=== PATIENT | female | born 1950 | race Caucasian/White ===

== ENCOUNTER 2018-02-17 14:50 | Emergency (ER) | payer MEDICARE, MEDICAID ==
--- NOTE | 2018-02-17 14:55 | EDM.PDOC ---
ED HPI GENERAL MEDICAL PROBLEM - General Stated Complaint: PRIVET PROBLEMS Time Seen by Provider: 02/17/18 14:55 Source of Information: Reports: Patient, Other (assisted staff) History Limitations: Reports: Other (Pt developmentally delayed, staff with her) - History of Present Illness INITIAL COMMENTS - FREE TEXT/NARRATIVE: Pt to ER from [facility] jail with staff. Staff states the patient was recently on oral antibiotics and has developed a vaginal yeast infection. Staff states this happens frequently with oral antibiotics. Patient states it is very painful , irritating, and itchy. Onset: Gradual - Related Data Allergies Allergy/AdvReac Type Severity Reaction Status Date / Time No Known Allergies Allergy Verified 02/17/18 14:55 Home Meds: Home Meds Calcium Carbonate [Calcium] 600 mg PO 12/08/13 [History] Insulin Aspart [NovoLOG] 12/08/13 [History] Insulin Glarg,Human.Rec.Analog [Lantus Solostar] 12/08/13 [History] Simvastatin 12/08/13 [History] Tussin 12/08/13 [History] Vit B Comp&C/Vit E Acet/Zinc [Leticia Zinc] 1 each PO 12/08/13 [History] Vit D 12/08/13 [History] levoFLOXacin [Levaquin] 12/08/13 [History] ED ROS GENERAL - Review of Systems Review Of Systems: ROS reveals no pertinent complaints other than HPI. ED EXAM, GENERAL - Physical Exam Exam: See Below Exam Limited By: No Limitations General Appearance: Alert, WD/WN, No Apparent Distress Eye Exam: Bilateral Eye: EOMI, Normal Inspection Ears: Normal External Exam, Hearing Grossly Normal Nose: Normal Inspection Throat/Mouth: Normal Inspection, Normal Voice, No Airway Compromise Head: Atraumatic, Normocephalic Neck: Normal Inspection Respiratory/Chest: No Respiratory Distress, Lungs Clear, Normal Breath Sounds, No Accessory Muscle Use, Chest Non-Tender Cardiovascular: Normal Peripheral Pulses, Regular Rate, Rhythm, No Edema, No Gallop, No JVD, No Murmur, No Rub Peripheral Pulses: 2+: Radial (L), Radial (R) GI/Abdominal: Normal Bowel Sounds, Soft, Non-Tender (Female) Exam: Vaginal Discharge (white), Vaginal Lesions (red, excoriation on labia majora and extending outward.) Rectal (Female) Exam: Deferred Back Exam: Normal Inspection, Full Range of Motion Extremities: Normal Inspection, Normal Range of Motion, Non-Tender, No Pedal Edema, Normal Capillary Refill Neurological: Alert, Oriented, Slow to Respond Psychiatric: Normal Affect, Normal Mood Skin Exam: Warm, Dry, Erythema (external vagina extending out onto the inner thighs and back to rectal area) Lymphatic: No Adenopathy Course - Vital Signs Last Recorded V/S: Last Vital Signs Temp 98.5 F 02/17/18 14:57 Pulse 82 02/17/18 14:57 Resp 16 02/17/18 14:57 BP 140/95 H 02/17/18 14:57 Pulse Ox 97 02/17/18 14:57 Departure - Departure Time of Disposition: 15:11 Disposition: Home, Self-Care 01 Condition: Fair Clinical Impression: Vaginal yeast infection - Discharge Information *PRESCRIPTION DRUG MONITORING PROGRAM REVIEWED*: No *COPY OF PRESCRIPTION DRUG MONITORING REPORT IN PATIENT VIVIENNE: No Instructions: Vaginal Yeast Infection, Adult, Vaginitis, [id number]-ei-[id number] Forms: ED Department Discharge Additional Instructions: RX: Fluconizole Continue using recommended external cream Follow up with your primary care provider.
== END 2018-02-17 15:15 | disposition home or self-care (01) ==
LOC: DL.ED 14:50
DX: B37.3 Candidiasis of vulva and vagina (principal); Z79.4 Long term (current) use of insulin
CPT/HCPCS: 99283

== ENCOUNTER 2019-05-21 12:41 | Emergency (ER) | payer MEDICARE, MEDICAID ==
[2019-05-21 13:51] LABS: ANION GAP 17.8; CHLORIDE,CL 104 mmol/L (101-111); SODIUM,NA 139 mmol/L (135-145)
[2019-05-21] MEDS ORDERED: Sodium Chloride 0.9% 1,000 ML IV ONE (15:25)
[2019-05-21] MEDS ORDERED: Iopamidol 612 MG/ML 100 ML Bottle IVPUSH ONE (16:12)
[2019-05-21] MEDS ORDERED: Piperacillin/Tazobactam 3.375 GM in Sodium Chloride 0.9% 100 ML IV ONE (17:26)
--- NOTE | 2019-05-21 17:29 | EDM.PDOC ---
Scribed by Comfort Rivera 05/21/19 [id number] for Josue Hopson PA ED HPI GENERAL MEDICAL PROBLEM - General Chief Complaint: Gastrointestinal Problem Stated Complaint: DIABETIC COMPLAINT Time Seen by Provider: 05/21/19 13:10 Source of Information: Reports: Patient, EMS, EMS Notes Reviewed, RN, RN Notes Reviewed History Limitations: Reports: Other (nonverbal) - History of Present Illness INITIAL COMMENTS - FREE TEXT/NARRATIVE: Patient presents to ER by [facility]. She is a 68-year-old female patient who vomited overnight and this morning. She has been running fevers. Her blood sugar was in the 150s. The [facility] home person states that the patient is "nonverbal". The staff reports patient has had decreased activity level. Onset Date: 05/20/19 Duration: Getting Worse Location: Reports: Generalized Quality: Reports: Ache Severity: Moderate Improves with: Reports: None Worsens with: Reports: None Associated Symptoms: Reports: No Other Symptoms - Related Data Allergies Allergy/AdvReac Type Severity Reaction Status Date / Time No Known Allergies Allergy Verified 05/21/19 13:02 Home Meds: Home Meds Calcium Carbonate [Calcium] 600 mg PO BID 12/08/13 [History] Insulin Aspart [NovoLOG] 0 units SQ TID 12/08/13 [History] Insulin Glarg,Human.Rec.Analog [Lantus Solostar] 28 units SQ DAILY 12/08/13 [ History] Simvastatin 20 mg PO DAILY 12/08/13 [History] Vit B Comp&C/Vit E Acet/Zinc [Leticia Zinc] 1 each PO DAILY 12/08/13 [History] Vit D 1,000 units PO DAILY 12/08/13 [History] Benzonatate [Tessalon Perle] 1 tab PO Q6H 05/21/19 [History] Montelukast [Singulair] 10 mg PO DAILY 05/21/19 [History] Past Medical History HEENT History: Reports: None Cardiovascular History: Reports: None Respiratory History: Reports: Asthma Gastrointestinal History: Reports: None Genitourinary History: Reports: None [employer] History: Reports: None Musculoskeletal History: Reports: None Neurological History: Reports: None Psychiatric History: Reports: Developmental Delay, Learning Disability Endocrine/Metabolic History: Reports: Diabetes, Type II Hematologic History: Reports: None Immunologic History: Reports: None Oncologic (Cancer) History: Reports: None Dermatologic History: Reports: None - Infectious Disease History Infectious Disease History: Reports: None - Past Surgical History Head Surgeries/Procedures: Reports: None Social & Family History - Family History Family Medical History: Noncontributory - Tobacco Use Smoking Status *Q: Never Smoker - Caffeine Use Caffeine Use: Reports: Coffee - Recreational Drug Use Recreational Drug Use: No ED ROS GENERAL - Review of Systems Review Of Systems: Comprehensive ROS is negative, except as noted in HPI. ED EXAM, GI/ABD - Physical Exam Exam: See Below Exam Limited By: No Limitations General Appearance: Alert, WD/WN, No Apparent Distress Eyes: Bilateral: Normal Appearance Ears: Normal External Exam, Normal Canal, Hearing Grossly Normal, Normal TMs Nose: Normal Inspection, Normal Mucosa, No Blood Throat/Mouth: Normal Inspection, Normal Lips, Normal Teeth, Normal Gums, Normal Oropharynx, Normal Voice, No Airway Compromise Head: Atraumatic, Normocephalic Neck: Normal Inspection, Supple, Non-Tender, Full Range of Motion Respiratory/Chest: No Respiratory Distress, Lungs Clear, Normal Breath Sounds, No Accessory Muscle Use, Chest Non-Tender Cardiovascular: Normal Peripheral Pulses, Regular Rate, Rhythm, No Edema, No Gallop, No JVD, No Murmur, No Rub GI/Abdominal Exam: Normal Bowel Sounds, Soft, Non-Tender, No Organomegaly, No Distention, No Abnormal Bruit, No Mass, Pelvis Stable (Female) Exam: Deferred Rectal (Female) Exam: Deferred Back Exam: Normal Inspection, Full Range of Motion, NT Extremities: Normal Inspection, Normal Range of Motion, Non-Tender, Normal Capillary Refill, No Pedal Edema Neurological: Alert, Oriented, CN II-XII Intact, Normal Cognition, Normal Gait, Normal Reflexes, No Motor/Sensory Deficits Psychiatric: Normal Affect, Normal Mood Skin Exam: Warm, Dry, Intact, Normal Color, No Rash Lymphatic: No Adenopathy Course - Vital Signs Last Recorded V/S: Last Vital Signs Temp 37.4 C 05/21/19 12:55 Pulse 57 L 05/21/19 12:55 Resp 18 05/21/19 12:55 BP 143/45 H 05/21/19 12:55 Pulse Ox 93 L 05/21/19 12:55 - Orders/Labs/Meds Orders: Active Orders 24 hr Category Date Time Status Glucose [Blood Glucose Check, Bedside] [RC] ONETIME Care 05/21/19 16:18 Active Abdomen Pelvis w Cont [CT] Urgent Exams 05/21/19 16:12 Taken CULTURE BLOOD [] Stat Lab 05/21/19 13:48 Results CULTURE BLOOD [] Stat Lab 05/21/19 15:06 Received CULTURE STREP A CONFIRMATION [] Stat Lab 05/21/19 14:15 Results STREP SCRN A RAPID W CULT CONF [] Stat Lab 05/21/19 14:15 Results Piperacillin/Tazobactam [Zosyn] 3.375 gm Med 05/21/19 17:26 Ordered Sodium Chloride 0.9% [Normal Saline] 100 ml IV ONETIME Labs: Laboratory Tests 05/21/19 05/21/19 05/21/19 Range/Units 13:11 13:11 13:19 WBC 12.7 H (5.0-10.0) 10^3/uL RBC 4.61 (4.2-5.4) 10^6/uL Hgb 12.4 (12.0-16.0) g/dL Hct 38.3 (37.0-47.0) % MCV 83.1 (80-100) fL MCH 26.9 L (27.0-34.0) pg MCHC 32.4 L (33.0-35.0) g/dL Plt Count 218 (150-450) 10^3/uL Neut % (Auto) 87.0 H (42.2-75.2) % Lymph % (Auto) 6.0 L (20.5-50.1) % Mccreary % (Auto) 6.9 (2-8) % Eos % (Auto) 0.0 L (1.0-3.0) % Baso % (Auto) 0.1 (0.0-1.0) % Sodium 139 (135-145) mmol/L Potassium 3.8 (3.6-5.0) mmol/L Chloride 104 (101-111) mmol/L Carbon Dioxide 21.0 (21.0-31.0) mmol/L Anion Gap 17.8 BUN 22 H (7-18) mg/dL Creatinine 0.8 (0.6-1.3) mg/dL Est Cr Clr Drug Dosing 52.20 mL/min Estimated GFR (MDRD) > 60 BUN/Creatinine Ratio 27.50 Glucose 224 H (74-105) mg/dL POC Glucose (70-105) mg/dl Lactic Acid (0.5-2.2) mmol/L Calcium 8.9 (8.4-10.2) mg/dl Total Bilirubin 1.1 H (0.2-1.0) mg/dL AST 32 (10-42) IU/L ALT 23 (10-60) IU/L Alkaline Phosphatase 52 (42-121) IU/L Total Protein 7.2 (6.7-8.2) g/dl Albumin 3.7 (3.2-5.5) g/dl Globulin 3.5 Albumin/Globulin Ratio 1.06 Urine Color Yellow (YELLOW) Urine Appearance Slightly cloudy (CLEAR) Urine pH 5.5 (5.0-9.0) Ur Specific [place] >= 1.030 (1.005-1.030) Urine Protein 100 H (NEGATIVE) Urine Glucose (UA) 100 H (NEGATIVE) Urine Ketones 40 H (NEGATIVE) Urine Occult Blood Negative (NEGATIVE) Urine Nitrite Negative (NEGATIVE) Urine Bilirubin Small H (NEGATIVE) Urine Urobilinogen 0.2 (0.2-1.0) mg/dL Ur Leukocyte Esterase Negative (NEGATIVE) Urine RBC 0-5 /HPF Urine WBC 0-5 (0-5/HPF) /HPF Ur Epithelial Cells Rare (NOT SEEN) /HPF Amorphous Sediment Many H (NOT SEEN) /HPF Urine Bacteria Moderate H (0-FEW/HPF) /HPF Urine Mucus Rare (NOT SEEN) /LPF 05/21/19 05/21/19 Range/Units 13:48 16:18 WBC (5.0-10.0) 10^3/uL RBC (4.2-5.4) 10^6/uL Hgb (12.0-16.0) g/dL Hct (37.0-47.0) % MCV (80-100) fL MCH (27.0-34.0) pg MCHC (33.0-35.0) g/dL Plt Count (150-450) 10^3/uL Neut % (Auto) (42.2-75.2) % Lymph % (Auto) (20.5-50.1) % Mccreary % (Auto) (2-8) % Eos % (Auto) (1.0-3.0) % Baso % (Auto) (0.0-1.0) % Sodium (135-145) mmol/L Potassium (3.6-5.0) mmol/L Chloride (101-111) mmol/L Carbon Dioxide (21.0-31.0) mmol/L Anion Gap BUN (7-18) mg/dL Creatinine (0.6-1.3) mg/dL Est Cr Clr Drug Dosing mL/min Estimated GFR (MDRD) BUN/Creatinine Ratio Glucose (74-105) mg/dL POC Glucose 213 H (70-105) mg/dl Lactic Acid 2.8 H (0.5-2.2) mmol/L Calcium (8.4-10.2) mg/dl Total Bilirubin (0.2-1.0) mg/dL AST (10-42) IU/L ALT (10-60) IU/L Alkaline Phosphatase (42-121) IU/L Total Protein (6.7-8.2) g/dl Albumin (3.2-5.5) g/dl Globulin Albumin/Globulin Ratio Urine Color (YELLOW) Urine Appearance (CLEAR) Urine pH (5.0-9.0) Ur Specific [place] (1.005-1.030) Urine Protein (NEGATIVE) Urine Glucose (UA) (NEGATIVE) Urine Ketones (NEGATIVE) Urine Occult Blood (NEGATIVE) Urine Nitrite (NEGATIVE) Urine Bilirubin (NEGATIVE) Urine Urobilinogen (0.2-1.0) mg/dL Ur Leukocyte Esterase (NEGATIVE) Urine RBC /HPF Urine WBC (0-5/HPF) /HPF Ur Epithelial Cells (NOT SEEN) /HPF Amorphous Sediment (NOT SEEN) /HPF Urine Bacteria (0-FEW/HPF) /HPF Urine Mucus (NOT SEEN) /LPF Meds: Medications Discontinued Medications Generic Name Dose Route Start Last Admin Trade Name Freq PRN Reason Stop Dose Admin Sodium Chloride 1,000 mls @ 500 mls/hr 05/21/19 15:25 05/21/19 15:44 Normal Saline IV 05/21/19 17:24 500 mls/hr .BOLUS ONE Administration Iopamidol 100 ml 05/21/19 16:12 05/21/19 16:36 Isovue-300 (61%) IVPUSH 05/21/19 16:13 75 ml ONETIME ONE Administration Departure - Departure Time of Disposition: 17:27 Disposition: DC/Tfer to [facility] 02 Condition: Serious Clinical Impression: Acute cholecystitis - Discharge Information *PRESCRIPTION DRUG MONITORING PROGRAM REVIEWED*: Not Applicable *COPY OF PRESCRIPTION DRUG MONITORING REPORT IN PATIENT VIVIENNE: Not Applicable Forms: Interfacility Transfer EMTALA Care Plan Goals: Discussed the history, examination, lab, x-ray and CT results with Dr. Garcia and Dr. Tan. Dr. Tan accepted the patient for continued evaluation and further management at [facility] in [place]. The patient was transported by [facility]. Sepsis Event Note - Evaluation Sepsis Screening Result: No Definite Risk - Focused Exam Vital Signs: Vital Signs Temp Pulse Resp BP Pulse Ox 05/21/19 12:55 37.4 C 57 L 18 143/45 H 93 L Date Exam was Performed: 05/21/19 Time Exam was Performed: 17:27 - My Orders Last 24 Hours: My Active Orders 05/21/19 13:48 CULTURE BLOOD [BC] Stat 05/21/19 14:15 CULTURE STREP A CONFIRMATION [RM] Stat STREP SCRN A RAPID W CULT CONF [RM] Stat 05/21/19 15:06 CULTURE BLOOD [BC] Stat 05/21/19 16:12 Abdomen Pelvis w Cont [CT] Urgent 05/21/19 16:18 Glucose [Blood Glucose Check, Bedside] [RC] ONETIME 05/21/19 17:26 Piperacillin/Tazobactam [Zosyn] 3.375 gm Sodium Chloride 0.9% [Normal Saline] 100 ml IV ONETIME - Assessment/Plan Last 24 Hours: My Active Orders 05/21/19 13:48 CULTURE BLOOD [BC] Stat 05/21/19 14:15 CULTURE STREP A CONFIRMATION [RM] Stat STREP SCRN A RAPID W CULT CONF [RM] Stat 05/21/19 15:06 CULTURE BLOOD [BC] Stat 05/21/19 16:12 Abdomen Pelvis w Cont [CT] Urgent 05/21/19 16:18 Glucose [Blood Glucose Check, Bedside] [RC] ONETIME 05/21/19 17:26 Piperacillin/Tazobactam [Zosyn] 3.375 gm Sodium Chloride 0.9% [Normal Saline] 100 ml IV ONETIME I have read and agree with the documentation that has been completed regarding this visit. By signing this record, I attest that the documentation was completed in my physical presence and is an accurate record of the encounter.
== END 2019-05-21 18:13 ==
LOC: DL.ED 12:41
DX: K81.0 Acute cholecystitis (principal); J45.909 Unspecified asthma, uncomplicated; E11.9 Type 2 diabetes mellitus without complications; Z79.4 Long term (current) use of insulin
CPT/HCPCS: 36415; 71045; 74177; 80053; 81001; 82962; 83605; 85025; 87040; 87077; 87081; 87430; 87804; 96361; 96365; 99285; J2543; J7030; J7050; Q9967

== ENCOUNTER 2020-02-07 07:05 | Day surgery (SDC) | payer MEDICARE, MEDICAID ==
[~2020-02-07 07:05] MED LIST: Dextrose 5%-0.45% NaCl 1,000 ML IV SCH; Sodium Chloride 0.9% 10 ML Syringe FLUSH PRN
[2020-02-07] MEDS ORDERED: Propofol 200 MG/20 ML SDV IV ONE (07:06)
--- NOTE | 2020-02-07 09:05 | OR ---
DATE: 02/07/2020 PROCEDURE: Esophagogastroduodenoscopy and multiple pinch biopsies. INSTRUMENT USED: [id number] Olympus video panendoscope. PREMEDICATIONS: No oral or topical anesthesia used. Premedications provided by [facility]. INDICATIONS: The patient with unexplained iron-deficiency anemia and Hemoccult- positive stools. Esophagogastroduodenoscopy is performed for detection of any active erosive lesions, Tello esophagus and/or malignancy also under consideration, H. pylori status to be determined, small bowel biopsies to be obtained for celiac disease if indicated, endoscopic hemostasis therapy if needed. The scope was passed with ease. Adequate visualization of the esophagus was made from ifcotchl-rb-amvyip areas. No upper esophageal lesions identified. No distal esophageal stricture. No uphill or down hill esophageal varices. No [place]-Sigala tear. No evidence of erosive esophagitis by Frio criteria. No esophageal polyp or tumor mass identified. Sliding hiatal hernia was noted. No proximal gastric varices noted. Gastric fundus examination by retroflexion showed no polypoid lesions. No gastric ulcer, malignant mass, or vascular ectasia identified. Duodenal bulb showed no ulcer. Visualized 2nd part of the duodenum was unremarkable. Multiple pinch biopsies, 4 in number were taken from different areas of the 2nd part of the duodenum and tissues were also obtained from the duodenal bulb at 9 and 12 o'clock positions and sent for any histopathologic evidence of celiac disease. Multiple pinch biopsies were obtained from the gastric antrum and proximal body and sent for PyloriTek test for H. pylori and histopathology. No bleeding was noted from any of the visualized areas at the completion of examination. Photographs were taken of the duodenal bulb, gastric antrum, fundus, and distal esophagus. IMPRESSION: Sliding hiatal hernia. The patient tolerated the procedure well. [facility] /[id number]
== END 2020-02-07 10:17 | disposition home or self-care (01) ==
LOC: DL.ENDO 07:05
PROVIDERS: ATTEND Internal Medicine Gastroenterology
DX: K29.50 Unspecified chronic gastritis without bleeding (principal); D50.9 Iron deficiency anemia, unspecified; K44.9 Diaphragmatic hernia without obstruction or gangrene; K31.89 Other diseases of stomach and duodenum; E66.09 Other obesity due to excess calories; E10.9 Type 1 diabetes mellitus without complications; G40.909 Epilepsy, unspecified, not intractable, without status epilepticus; R91.8 Other nonspecific abnormal finding of lung field; E78.5 Hyperlipidemia, unspecified; Z98.890 Other specified postprocedural states; Z90.49 Acquired absence of other specified parts of digestive tract; Z98.49 Cataract extraction status, unspecified eye; Z68.33 Body mass index [BMI] 33.0-33.9, adult
CPT/HCPCS: 00731; 43239; 87077; J2704; J7042

== ENCOUNTER 2020-02-11 06:57 | Day surgery (SDC) | payer MEDICARE, MEDICAID ==
[2020-02-11] MEDS ORDERED: Propofol 200 MG/20 ML SDV IV ONE (06:58)
--- NOTE | 2020-02-11 11:17 | OR ---
DATE: 02/11/2020 PROCEDURE: Total colonoscopy, narrow band imaging, and multiple pinch biopsies. INSTRUMENT USED: [id number]-[id number] Olympus video colonoscope. PREMEDICATIONS: Provided by [facility]. INDICATIONS: The patient with iron deficiency anemia, Hemoccult-positive stools. Colonoscopic examination is done for detection of any polypoid lesions and removal, endoscopic hemostasis therapy if needed. DESCRIPTION OF PROCEDURE: Initial rectal exam was unremarkable. Rigid anoscopy was normal. The colonoscope was passed with ease up to the ileocecal area. Photographs were taken of the cecum showing some prominent folds around the appendiceal area. NBI views were obtained. Multiple pinch biopsies were obtained and sent for histopathology. No bleeding was noted from any of the visualized areas at the commencement of the examination. The bowel preparation was found to be adequate, [place] scale 2 in all the regions, total score 6. No stricture. No vascular ectasia. No large isolated ulcerations seen. No evidence of diffuse inflammatory bowel disease in the form of friability, contact bleeding, or ulcerations. No polyp or tumor mass identified. Probing the proximal sides of folds and flexures using adequate distention and clearing up the stool material, withdrawal of the scope was made, cecum to rectum time over 6 minutes. No bleeding was noted from any of the visualized areas at the completion of examination. IMPRESSION: Normal study. The patient tolerated the procedure well. [facility] /[id number]
== END 2020-02-11 10:39 | disposition home or self-care (01) ==
LOC: DL.ENDO 06:57
PROVIDERS: ATTEND Internal Medicine Gastroenterology
DX: D50.9 Iron deficiency anemia, unspecified (principal); R19.5 Other fecal abnormalities; E66.09 Other obesity due to excess calories; G40.909 Epilepsy, unspecified, not intractable, without status epilepticus; E10.9 Type 1 diabetes mellitus without complications; E78.5 Hyperlipidemia, unspecified; R91.1 Solitary pulmonary nodule; Z98.890 Other specified postprocedural states; Z90.49 Acquired absence of other specified parts of digestive tract; Z98.49 Cataract extraction status, unspecified eye; Z68.33 Body mass index [BMI] 33.0-33.9, adult
CPT/HCPCS: 00902; J2704; J7042

== ENCOUNTER 2020-11-18 01:13 | Emergency (ER) | payer MEDICARE, MEDICAID ==
--- NOTE | 2020-11-18 02:37 | EDM.PDOC ---
ED HPI GENERAL MEDICAL PROBLEM - General Chief Complaint: General Stated Complaint: AMBULANCE Time Seen by Provider: 11/18/20 02:20 Source of Information: Reports: Other (Caregiver) History Limitations: Reports: No Limitations - History of Present Illness INITIAL COMMENTS - FREE TEXT/NARRATIVE: This 69 yo female patient was brought to the ED by [facility] due to a cough and increased shortness of breath. The patient's caregiver reports the patient developed a cough over the past several days, but her cough had been worse this evening. Staff members report that the patient started to have difficulties catching her breath prior to calling for an ambulance. Onset: Gradual Duration: Day(s):, Constant, Getting Worse Location: Reports: Chest Quality: Reports: Other Severity: Mild Improves with: Reports: None Worsens with: Reports: None Context: Reports: Other Associated Symptoms: Reports: Cough, Shortness of Breath - Related Data Allergies Allergy/AdvReac Type Severity Reaction Status Date / Time No Known Allergies Allergy Verified 11/18/20 01:55 Home Meds: Home Meds Calcium Carbonate [Calcium] 600 mg PO BID 12/08/13 [History] Insulin Aspart [NovoLOG] 1 - 12 units SQ TIDMEALS 12/08/13 [History] Insulin Glarg,Human.Rec.Analog [Lantus Solostar] 28 units SQ DAILY 12/08/13 [History] Simvastatin 20 mg PO BEDTIME 12/08/13 [History] Benzonatate [Tessalon Perle] 200 mg PO TID PRN 05/21/19 [History] Montelukast [Singulair] 10 mg PO DAILY 05/21/19 [History] Albuterol Sulfate 1 vial INH Q4H PRN 01/31/20 [History] Budesonide [Pulmicort] 1 vial INH BID 01/31/20 [History] Cholecalciferol (Vitamin D3) [Vitamin D3] 25 mcg PO DAILY 01/31/20 [History] Fluconazole [Diflucan] 150 mg PO DAILY 01/31/20 [History] Lactose-Reduced Food [Ensure Active Protein-Muscle] 237 ml PO ASDIRECTED PRN 01/31/20 [History] Multivitamin with Minerals [Multivitamins with Minerals] 1 tab PO DAILY 01/31/20 [History] Omeprazole 20 mg PO BID 01/31/20 [History] Past Medical History HEENT History: Reports: None Cardiovascular History: Reports: High Cholesterol Respiratory History: Reports: Asthma, Other (See Below) Other Respiratory History: Lung nodule Gastrointestinal History: Reports: GERD, Other (See Below) Other Gastrointestinal History: positive hemoccult stools and iron deficiency anemia Genitourinary History: Reports: None BOY'S ADVISER History: Reports: None Musculoskeletal History: Reports: None Neurological History: Reports: Seizure, Other (See Below) Other Neuro History: INTELLECTUAL DISABILITY Psychiatric History: Reports: Developmental Delay, Learning Disability Endocrine/Metabolic History: Reports: Diabetes, Type I, Obesity/BMI 30+ Hematologic History: Reports: Iron Deficiency, Other (See Below) Other Hematologic History: positive hemoccult stools Immunologic History: Reports: None Oncologic (Cancer) History: Reports: None Dermatologic History: Reports: None - Infectious Disease History Infectious Disease History: Reports: None - Past Surgical History Head Surgeries/Procedures: Reports: None HEENT Surgical History: Reports: Cataract Surgery GI Surgical History: Reports: Cholecystectomy, EGD Female Surgical History: Reports: Breast Biopsy Neurological Surgical History: Reports: None Musculoskeletal Surgical History: Reports: None Oncologic Surgical History: Reports: Biopsy of Breast Social & Family History - Family History Family Medical History: No Pertinent Family History - Tobacco Use Tobacco Use Status *Q: Never Tobacco User - Caffeine Use Caffeine Use: Reports: Coffee, Soda, Tea - Recreational Drug Use Recreational Drug Use: No ED ROS GENERAL - Review of Systems Review Of Systems: Comprehensive ROS is negative, except as noted in HPI. ED EXAM, GENERAL - Physical Exam Exam: See Below Exam Limited By: No Limitations General Appearance: Alert, WD/WN, Mild Distress Eye Exam: Bilateral Eye: EOMI, Normal Inspection, PERRL Ears: Normal External Exam, Normal Canal, Hearing Grossly Normal, Normal TMs Nose: Normal Inspection, Normal Mucosa, No Blood Throat/Mouth: Normal Inspection, Normal Lips, Normal Teeth, Normal Gums, Normal Oropharynx, Normal Voice, No Airway Compromise Head: Atraumatic, Normocephalic Neck: Normal Inspection, Supple, Non-Tender, Full Range of Motion Respiratory/Chest: No Respiratory Distress, Lungs Clear, Normal Breath Sounds, No Accessory Muscle Use, Chest Non-Tender Cardiovascular: Normal Peripheral Pulses, Regular Rate, Rhythm, No Edema, No Gallop, No JVD, No Murmur, No Rub GI/Abdominal: Normal Bowel Sounds, Soft, Non-Tender, No Organomegaly, No Distention, No Abnormal Bruit, No Mass (Female) Exam: Deferred Rectal (Female) Exam: Deferred Back Exam: Normal Inspection, Full Range of Motion, NT Extremities: Normal Inspection, Normal Range of Motion, Non-Tender, Normal Capillary Refill, No Pedal Edema Neurological: Alert, Oriented, CN II-XII Intact, Normal Cognition, Normal Gait, Normal Reflexes, No Motor/Sensory Deficits Psychiatric: Normal Affect, Normal Mood Skin Exam: Warm, Dry, Intact, Normal Color, No Rash Lymphatic: No Adenopathy Course - Vital Signs Last Recorded V/S: Last Vital Signs Temp 99.4 F 11/18/20 01:51 Pulse 87 11/18/20 01:51 Resp 22 H 11/18/20 01:51 BP 129/76 11/18/20 01:51 Pulse Ox 93 L 11/18/20 01:51 - Orders/Labs/Meds Orders: Active Orders 24 hr Category Date Time Status Chest 1V Frontal [CR] Urgent Exams 11/18/20 02:11 Ordered COMPREHENSIVE METABOLIC PN,CMP [CHEM] Stat Lab 11/18/20 02:11 Ordered CULTURE BLOOD [BC] Stat Lab 11/18/20 02:11 Ordered LACTATE SEPSIS W/ REFLEX [CHEM] Stat Lab 11/18/20 02:11 Ordered Labs: Laboratory Tests 11/18/20 Range/Units 02:25 WBC 4.6 L (5.0-10.0) 10^3/uL RBC 4.73 (4.2-5.4) 10^6/uL Hgb 12.8 (12.0-16.0) g/dL Hct 40.1 (37.0-47.0) % MCV 84.8 (80-100) fL MCH 27.1 (27.0-34.0) pg MCHC 31.9 L (33.0-35.0) g/dL Plt Count 239 (150-450) 10^3/uL Neut % (Auto) 59.0 (42.2-75.2) % Lymph % (Auto) 24.4 (20.5-50.1) % [place] % (Auto) 11.6 H (2-8) % Eos % (Auto) 5.0 H (1.0-3.0) % Baso % (Auto) 0.0 (0.0-1.0) % Meds: Medications Discontinued Medications Generic Name Dose Route Start Last Admin Trade Name Garry PRN Reason Stop Dose Admin Azithromycin 500 mg 11/18/20 02:43 Azithromycin 250 Mg Tab PO 11/18/20 02:44 ONETIME ONE Departure - Departure Time of Disposition: 02:46 Disposition: Home, Self-Care 01 Condition: Fair Clinical Impression: Bronchitis - Discharge Information *PRESCRIPTION DRUG MONITORING PROGRAM REVIEWED*: Not Applicable *COPY OF PRESCRIPTION DRUG MONITORING REPORT IN PATIENT VIVIENNE: Not Applicable Instructions: Acute Bronchitis, Adult, [id number] Referrals: Dari Moe NP [Primary Care Provider] - Forms: ED Department Discharge Care Plan Goals: The patient and caregiver were advised of the examination, lab and x-ray results during the visit. The patient was given an oral dose of Azithromycin while in the ED. The patient was given a script for Azithromycin (250 mg) #4 to take 1 by mouth daily (starting 11/19/20). The patient may continue to take over the counter medications for temporary symptom relief. If the patient has any additional symptoms or concerns, the patient should either return to the emergency department or visit her primary care facility. Sepsis Event Note (ED) - Evaluation Sepsis Screening Result: No Definite Risk - Focused Exam Vital Signs: Vital Signs Temp Pulse Resp BP Pulse Ox 11/18/20 01:51 99.4 F 87 22 H 129/76 93 L - My Orders Last 24 Hours: My Active Orders 11/18/20 02:11 Chest 1V Frontal [CR] Urgent COMPREHENSIVE METABOLIC PN,CMP [CHEM] Stat CULTURE BLOOD [BC] Stat LACTATE SEPSIS W/ REFLEX [CHEM] Stat - Assessment/Plan Last 24 Hours: My Active Orders 11/18/20 02:11 Chest 1V Frontal [CR] Urgent COMPREHENSIVE METABOLIC PN,CMP [CHEM] Stat CULTURE BLOOD [BC] Stat LACTATE SEPSIS W/ REFLEX [CHEM] Stat
[2020-11-18] MEDS ORDERED: Azithromycin 250 MG Tab PO ONE (02:43)
[2020-11-18 02:52] LABS: ANION GAP 16.1 mEq/L (7-13); CHLORIDE,CL 101 mmol/L (98-107); SODIUM,NA 137 mmol/L (136-145)
--- NOTE | 2020-11-18 03:58 | CR ---
PROCEDURE INFORMATION: Exam: XR Chest Exam date and time: 11/18/2020 2:18 AM Age: 69 years old Clinical indication: Shortness of breath; Additional info: Short of breath TECHNIQUE: Imaging protocol: XR of the chest. Views: 1 view. COMPARISON: CR Chest 1V Frontal 05/21/2019 2:23 PM FINDINGS: Lungs: There are low lung volumes. Otherwise, the lungs are clear. Pleural spaces: Unremarkable. No pleural effusion. No pneumothorax. Heart/Mediastinum: Unremarkable. No cardiomegaly. Bones/joints: Unremarkable. IMPRESSION: There are low lung volumes. Otherwise, the lungs are clear.
== END 2020-11-18 03:38 | disposition home or self-care (01) ==
LOC: DL.ED 01:13
DX: J40 Bronchitis, not specified as acute or chronic (principal); E78.00 Pure hypercholesterolemia, unspecified; E10.9 Type 1 diabetes mellitus without complications; K21.9 Gastro-esophageal reflux disease without esophagitis; E66.9 Obesity, unspecified; Z68.30 Body mass index [BMI] 30.0-30.9, adult; Z79.899 Other long term (current) drug therapy
CPT/HCPCS: 36415; 71045; 80053; 83605; 85025; 87040; 99283; 99285-25; A9270-GY

== ENCOUNTER 2022-01-28 07:10 | Emergency (ER) | payer MEDICARE, MEDICAID ==
[2022-01-28] MEDS: Acetaminophen 500 MG Tab PO ONE (07:40)
[2022-01-28] MEDS: Acetaminophen 325 MG Tab PO ONE (07:42)
[2022-01-28 08:13] LABS: RESPIRATORY SYNCYTIAL VIR NAA NEGATIVE (NEGATIVE)
[2022-01-28 08:17] LABS: CORONAVIRUS COVID-19 NAA POSITIVE (NEGATIVE)
[2022-01-28 08:24] LABS: ANION GAP 13.1 mEq/L (7-13)
== END 2022-01-28 09:23 | disposition home or self-care (01) ==
LOC: DL.ED 07:10
DX: U07.1 COVID-19 (principal); E78.00 Pure hypercholesterolemia, unspecified; K21.9 Gastro-esophageal reflux disease without esophagitis; E10.9 Type 1 diabetes mellitus without complications; E66.9 Obesity, unspecified; Z68.29 Body mass index [BMI] 29.0-29.9, adult; Z79.4 Long term (current) use of insulin; Z79.899 Other long term (current) drug therapy
CPT/HCPCS: 0241U; 36415; 71045; 80053; 83605; 85025; 87040; 99284; A9270-GY

== ENCOUNTER 2022-04-28 09:35 | Emergency (ER) | payer MEDICARE, MEDICAID ==
[2022-04-28] MEDS ORDERED: Diphtheria,Pertussis(Acell),Tetanus Vaccine 0.5 ML Syringe IM ONE (10:13)
== END 2022-04-28 10:45 | disposition home or self-care (01) ==
LOC: DL.ED 09:35
DX: S01.01XA Laceration without foreign body of scalp, initial encounter (principal); K21.9 Gastro-esophageal reflux disease without esophagitis; E10.9 Type 1 diabetes mellitus without complications; E78.00 Pure hypercholesterolemia, unspecified; E66.9 Obesity, unspecified; Z68.33 Body mass index [BMI] 33.0-33.9, adult; Z79.899 Other long term (current) drug therapy; Z79.4 Long term (current) use of insulin; Z90.49 Acquired absence of other specified parts of digestive tract; W19.XXXA Unspecified fall, initial encounter; Y92.009 Unspecified place in unspecified non-institutional (private) residence as the place of occurrence of the external cause
CPT/HCPCS: 12001; 70450; 72125; 90471; 99284-25

== ENCOUNTER 2022-08-07 19:18 | Emergency (ER) | payer MEDICARE, MEDICAID ==
[2022-08-07] MEDS ORDERED: Benzonatate 100 MG Cap PO ONE (19:19)
[2022-08-07 20:15] LABS: ANION GAP 13.9 mEq/L (7-13); CHLORIDE,CL 97 mmol/L (98-107); SODIUM,NA 135 mmol/L (136-145)
[2022-08-07 20:30] LABS: ESTIMATED GFR 74 mL/min (>=60)
[2022-08-07 20:35] LABS: RESPIRATORY SYNCYTIAL VIR NAA NEGATIVE (NEGATIVE)
[2022-08-07 20:40] LABS: CORONAVIRUS COVID-19 NAA POSITIVE (NEGATIVE)
[2022-08-07] MEDS ORDERED: Benzonatate 100 MG Cap ONE (21:13)
== END 2022-08-07 21:47 ==
LOC: DL.ED 19:18
DX: U07.1 COVID-19 (principal); J12.82 Pneumonia due to coronavirus disease 2019; E78.00 Pure hypercholesterolemia, unspecified; J45.909 Unspecified asthma, uncomplicated; K21.9 Gastro-esophageal reflux disease without esophagitis; E10.9 Type 1 diabetes mellitus without complications; E66.9 Obesity, unspecified; Z79.899 Other long term (current) drug therapy
CPT/HCPCS: 0241U; 36415; 71045; 80053; 83605; 83880; 84484; 85025; 86140; 93005; 93010; 99284; 99285; A9270

== ENCOUNTER 2023-09-12 08:06 | Inpatient (IN) | payer MEDICARE, MEDICAID ==
[2023-09-12] MEDS: Sodium Chloride 0.9% 10 ML Syringe FLUSH PRN (08:30)
[2023-09-12 08:58] LABS: BASOPHILS PERCENT AUTO 0.1 % (0.0-1.0); EOSINOPHILS PERCENT AUTO 0.7 % (1.0-3.0); HEMATOCRIT 38.2 % (37.0-47.0); HEMOGLOBIN 11.9 g/dL (12.0-16.0); LYMPHOCYTES PERCENT AUTO 8.8 % (20.5-50.1); MEAN CORPUSCULAR HEMOGLOBIN 25.9 pg (27.0-34.0); MEAN CORPUSCULAR HGB CONC 31.2 g/dL (33.0-35.0); MEAN CORPUSCULAR VOLUME 83.2 fL (80-100); MONOCYTES PERCENT AUTO 6.3 % (2-8); NEUTROPHILS PERCENT AUTO 84.1 % (42.2-75.2); PLATELET COUNT,PLT 217 10^3/uL (150-450); RED BLOOD CELL COUNT 4.59 10^6/uL (4.2-5.4); WHITE BLOOD CELL COUNT,WBC 6.8 10^3/uL (5.0-10.0)
[2023-09-12 09:12] LABS: CORONAVIRUS COVID-19 NAA NEGATIVE (NEGATIVE); INFLUENZA A NAA NEGATIVE (NEGATIVE); INFLUENZA B NAA NEGATIVE (NEGATIVE); RESPIRATORY SYNCYTIAL VIR NAA NEGATIVE (NEGATIVE)
[2023-09-12 09:26] LABS: A/G RATIO 0.64; ALBUMIN 2.9 g/dL (3.4-5.0); ANION GAP 14.6 mEq/L (7-13); BILIRUBIN TOTAL 0.2 mg/dL (0.2-1.0); BUN/CREATININE RATIO 26.1 (No establ ref range); CALCIUM 8.4 mg/dL (8.5-10.1); CREATININE 0.88 mg/dL (0.55-1.02); EST CRCL DRUG DOSING (CG) 47.05 mL/min; POTASSIUM,K 3.6 mmol/L (3.5-5.1); PROTEIN TOTAL,TP 7.4 g/dL (6.4-8.2)
[2023-09-12] MEDS: Acetaminophen 500 MG Tab PO ONE (09:59)
[2023-09-12 10:14] LABS: APPEARANCE,URINE SLIGHTLY CLOUDY (CLEAR); BILIRUBIN,URINE NEGATIVE (NEGATIVE); COLOR,URINE YELLOW (YELLOW); GLUCOSE,URINE NEGATIVE (NEGATIVE); KETONES,URINE NEGATIVE (NEGATIVE); LEUKOCYTE ESTERASE,URINE NEGATIVE (NEGATIVE); NITRITE,URINE NEGATIVE (NEGATIVE); OCCULT BLOOD,URINE NEGATIVE (NEGATIVE); PH,URINE 6.5 (5.0-9.0); PROTEIN,URINE NEGATIVE (NEGATIVE); UROBILINOGEN,URINE 0.2 mg/dL (0.2-1.0)
[2023-09-12] MEDS: 50% Dextrose in Water 50 ML Syringe IVPUSH ONE (10:20)
[2023-09-12] MEDS: 50% Dextrose in Water 50 ML Syringe ONE (10:25)
[2023-09-12] MEDS: Furosemide 40 MG/4 ML VIAL IVPUSH ONE (11:00)
[2023-09-12] MEDS: Azithromycin 500 MG in Sodium Chloride 0.9% 250 ML IV ONE (11:00)
[2023-09-12] MEDS: cefTRIAXone 1 GM Vial IVPUSH ONE (11:00)
[2023-09-12] MEDS ORDERED: Albuterol/Ipratropium 3.0-0.5 MG/3 ML Neb Soln NEB PRN ×2 (11:54→14:39)
[2023-09-12] MEDS ORDERED: Acetaminophen 325 MG Tab PO PRN (11:54)
[2023-09-12] MEDS ORDERED: Ondansetron 4 MG/2 ML SDV IVPUSH PRN (11:54)
[2023-09-12] MEDS ORDERED: Ketorolac 30 MG/ML SDV IVPUSH PRN (11:54)
[2023-09-12] MEDS ORDERED: traMADol 50 MG Tab PO PRN (11:57)
[2023-09-12] MEDS ORDERED: Glucagon,Human Recombinant 1 MG Vial IM PRN ×2 (11:59→18:23)
[2023-09-12] MEDS ORDERED: 50% Dextrose in Water 50 ML Syringe IVPUSH PRN ×2 (11:59→18:23)
[2023-09-12] MEDS ORDERED: Dextrose 5%-0.9% NaCl 1,000 ML IV SCH (12:00)
[2023-09-12] MEDS: Insulin Lispro 100 Units/ML 3 ML Vial SUBCUT SCH ×2 (12:26→17:20)
[2023-09-12] MEDS: Pantoprazole 40 MG Vial IVPUSH ONE (12:40)
[2023-09-12] MEDS: Ampicillin/Sulbactam Na 1.5 GM in Sodium Chloride 0.9% 100 ML IV SCH (12:45)
[2023-09-12 13:02] LABS: T4 FREE 0.97 ng/dL (0.76-1.46); TSH ULTRASENSITIVE 0.63 uIU/mL (0.36-3.74)
[2023-09-12] MEDS ORDERED: ZINC OXIDE TP PRN (14:31)
[2023-09-12] MEDS ORDERED: Magnesium Hydroxide 400 MG/5 ML Susp 30 ML Cup PO PRN (14:31)
[2023-09-12] MEDS ORDERED: LACTOSE REDUCED FOOD PO PRN (14:31)
[2023-09-12] MEDS ORDERED: Non-Formulary Medication 1 Each (Clobetasol [Clobetasol 0.05%] 30 GM Tube) TOP SCH (14:45)
[2023-09-12] MEDS ORDERED: Acetaminophen 500 MG Tab PO SCH (14:45)
[2023-09-12] MEDS: Albuterol/Ipratropium 3.0-0.5 MG/3 ML Neb Soln INH SCH (15:17)
[2023-09-12] MEDS ORDERED: Pantoprazole 40 MG Tab.CR PO SCH (16:00)
[2023-09-12] MEDS: Acetaminophen 500 MG Tab PO SCH (17:17)
[2023-09-12] MEDS: Bumetanide 1 MG Tab PO SCH (17:21)
[2023-09-12] MEDS: Polyethylene Glycol 3350 Powder 17 GM Packet PO PRN (17:29)
[2023-09-12] MEDS ORDERED: Bisacodyl 10 MG Supp RECTAL PRN (19:46)
[2023-09-12] MEDS: Insulin Regular, Human 100 Units/ML 3 ML Vial IV ONE (20:29)
[2023-09-12] MEDS: Docusate Sodium 100 MG Cap PO SCH (21:16)
[2023-09-12] MEDS: Primidone 50 MG Tab PO SCH (21:16)
[2023-09-12] MEDS: Saccharomyces Boulardii (Probiotic) 250 MG Cap PO SCH (21:16)
[2023-09-12] MEDS: Calcium Carbonate 500 MG Tab.Chew PO SCH (21:17)
[2023-09-12] MEDS: Montelukast 10 MG Tab PO SCH (21:17)
[2023-09-12] MEDS: Simvastatin 10 MG Tab PO SCH (21:17)
[2023-09-12] MEDS: Omeprazole 20 MG Cap.CR PO SCH (21:17)
[2023-09-12] MEDS: guaiFENesin 600 MG Tab.ER PO PRN (21:19)
[2023-09-12] MEDS: Melatonin 3 MG Tab PO PRN (21:19)
[2023-09-12] MEDS: Benzonatate 100 MG Cap PO PRN (21:19)
[2023-09-12] MEDS: Insulin Glarg,Human.Rec.Analog 100 Unit/ML 10 ML Vial SUBCUT SCH (21:34)
[2023-09-12] MEDS: Sodium Chloride 0.9% 1,000 ML IV SCH (21:37)
[2023-09-13 06:31] LABS: EOSINOPHILS PERCENT AUTO 2.7 % (1.0-3.0); HEMATOCRIT 32.8 % (37.0-47.0); HEMOGLOBIN 10.3 g/dL (12.0-16.0); LYMPHOCYTES PERCENT AUTO 12.3 % (20.5-50.1); MEAN CORPUSCULAR HEMOGLOBIN 26.5 pg (27.0-34.0); MEAN CORPUSCULAR HGB CONC 31.4 g/dL (33.0-35.0); MEAN CORPUSCULAR VOLUME 84.3 fL (80-100); MONOCYTES PERCENT AUTO 9.4 % (2-8); NEUTROPHILS PERCENT AUTO 75.6 % (42.2-75.2); PLATELET COUNT,PLT 183 10^3/uL (150-450); RED BLOOD CELL COUNT 3.89 10^6/uL (4.2-5.4); WHITE BLOOD CELL COUNT,WBC 6.2 10^3/uL (5.0-10.0)
[2023-09-13 06:56] LABS: ALBUMIN 2.5 g/dL (3.4-5.0); ANION GAP 11.9 mEq/L (7-13); BILIRUBIN TOTAL 0.2 mg/dL (0.2-1.0); BUN/CREATININE RATIO 25.6 (No establ ref range); CALCIUM 7.8 mg/dL (8.5-10.1); CREATININE 0.82 mg/dL (0.55-1.02); EST CRCL DRUG DOSING (CG) 48.17 mL/min; MAGNESIUM 1.5 mg/dL (1.8-2.4); POTASSIUM,K 3.9 mmol/L (3.5-5.1); PROTEIN TOTAL,TP 6.6 g/dL (6.4-8.2)
[2023-09-13 06:57] LABS: A/G RATIO 0.61
[2023-09-13] MEDS: Cholecalciferol (Vitamin D3) 25 MCG Tab PO SCH (08:41)
[2023-09-13] MEDS: Multivitamin Tab PO SCH (08:41)
[2023-09-13] MEDS: Azithromycin 500 MG in Sodium Chloride 0.9% 250 ML IV SCH (08:57)
[2023-09-13] MEDS: Benzocaine/Docusate Sodium 20-283 MG/5 ML Enema RECTAL ONE (09:53)
[2023-09-14 06:28] LABS: EOSINOPHILS PERCENT AUTO 3.3 % (1.0-3.0); HEMATOCRIT 34.3 % (37.0-47.0); HEMOGLOBIN 10.7 g/dL (12.0-16.0); LYMPHOCYTES PERCENT AUTO 12.5 % (20.5-50.1); MEAN CORPUSCULAR HEMOGLOBIN 26.3 pg (27.0-34.0); MEAN CORPUSCULAR HGB CONC 31.2 g/dL (33.0-35.0); MEAN CORPUSCULAR VOLUME 84.3 fL (80-100); MONOCYTES PERCENT AUTO 8.4 % (2-8); NEUTROPHILS PERCENT AUTO 75.8 % (42.2-75.2); PLATELET COUNT,PLT 210 10^3/uL (150-450); RED BLOOD CELL COUNT 4.07 10^6/uL (4.2-5.4)
[2023-09-14 06:57] LABS: ALBUMIN 2.5 g/dL (3.4-5.0); ANION GAP 11.9 mEq/L (7-13); BILIRUBIN TOTAL 0.2 mg/dL (0.2-1.0); BUN/CREATININE RATIO 18.2 (No establ ref range); CALCIUM 7.9 mg/dL (8.5-10.1); CREATININE 0.77 mg/dL (0.55-1.02); EST CRCL DRUG DOSING (CG) 51.3 mL/min; MAGNESIUM 1.7 mg/dL (1.8-2.4); POTASSIUM,K 3.9 mmol/L (3.5-5.1); PROTEIN TOTAL,TP 6.8 g/dL (6.4-8.2)
[2023-09-14 06:59] LABS: A/G RATIO 0.58
[2023-09-14] MEDS: Magnesium Hydroxide 400 MG/5 ML Susp 30 ML Cup PO PRN (09:10)
[2023-09-14] MEDS: guaiFENesin 600 MG Tab.ER PO PRN (17:19)
[2023-09-15 06:14] LABS: EOSINOPHILS PERCENT AUTO 3.2 % (1.0-3.0); HEMATOCRIT 33.9 % (37.0-47.0); HEMOGLOBIN 10.5 g/dL (12.0-16.0); LYMPHOCYTES PERCENT AUTO 14.7 % (20.5-50.1); MEAN CORPUSCULAR HEMOGLOBIN 26.2 pg (27.0-34.0); MEAN CORPUSCULAR VOLUME 84.5 fL (80-100); MONOCYTES PERCENT AUTO 8.5 % (2-8); NEUTROPHILS PERCENT AUTO 73.6 % (42.2-75.2); PLATELET COUNT,PLT 218 10^3/uL (150-450); RED BLOOD CELL COUNT 4.01 10^6/uL (4.2-5.4); WHITE BLOOD CELL COUNT,WBC 4.7 10^3/uL (5.0-10.0)
[2023-09-15 06:24] LABS: ALBUMIN 2.5 g/dL (3.4-5.0); ANION GAP 12.3 mEq/L (7-13); BILIRUBIN TOTAL 0.2 mg/dL (0.2-1.0); BUN/CREATININE RATIO 20.5 (No establ ref range); CALCIUM 8.1 mg/dL (8.5-10.1); CREATININE 0.78 mg/dL (0.55-1.02); EST CRCL DRUG DOSING (CG) 50.64 mL/min; MAGNESIUM 1.9 mg/dL (1.8-2.4); POTASSIUM,K 4.3 mmol/L (3.5-5.1); PROTEIN TOTAL,TP 6.8 g/dL (6.4-8.2)
[2023-09-15 06:25] LABS: A/G RATIO 0.58
[2023-09-15] MEDS: Insulin Glarg,Human.Rec.Analog 100 Unit/ML 10 ML Vial SUBCUT SCH (08:58)
[2023-09-15] MEDS: Sennosides/Docusate Sodium 50-8.6 MG Tab PO PRN (20:52)
[2023-09-16 06:04] LABS: BASOPHILS PERCENT AUTO 0.2 % (0.0-1.0); EOSINOPHILS PERCENT AUTO 4.6 % (1.0-3.0); HEMATOCRIT 33.6 % (37.0-47.0); HEMOGLOBIN 10.4 g/dL (12.0-16.0); LYMPHOCYTES PERCENT AUTO 22.6 % (20.5-50.1); MEAN CORPUSCULAR HEMOGLOBIN 26.1 pg (27.0-34.0); MEAN CORPUSCULAR VOLUME 84.4 fL (80-100); MONOCYTES PERCENT AUTO 9.7 % (2-8); NEUTROPHILS PERCENT AUTO 62.9 % (42.2-75.2); PLATELET COUNT,PLT 219 10^3/uL (150-450); RED BLOOD CELL COUNT 3.98 10^6/uL (4.2-5.4); WHITE BLOOD CELL COUNT,WBC 4.3 10^3/uL (5.0-10.0)
[2023-09-16 06:26] LABS: ALBUMIN 2.5 g/dL (3.4-5.0); ANION GAP 10.1 mEq/L (7-13); BILIRUBIN TOTAL 0.2 mg/dL (0.2-1.0); BUN/CREATININE RATIO 20.3 (No establ ref range); CALCIUM 8.1 mg/dL (8.5-10.1); CREATININE 0.79 mg/dL (0.55-1.02); MAGNESIUM 1.9 mg/dL (1.8-2.4); POTASSIUM,K 4.1 mmol/L (3.5-5.1); PROTEIN TOTAL,TP 6.7 g/dL (6.4-8.2)
[2023-09-16 06:27] LABS: A/G RATIO 0.6
== END 2023-09-16 09:49 | disposition home or self-care (01) | DRG 394 ==
LOC: DL.ED 08:06 → DL.MS 10:53 → DL.ED 11:44
PROVIDERS: ADMIT Internal Medicine; ATTEND Internal Medicine
DX: T18.9XXA Foreign body of alimentary tract, part unspecified, initial encounter (principal); E87.20 Acidosis, unspecified; D50.9 Iron deficiency anemia, unspecified; K59.00 Constipation, unspecified; E10.9 Type 1 diabetes mellitus without complications; E11.649 Type 2 diabetes mellitus with hypoglycemia without coma; Z79.4 Long term (current) use of insulin; F79 Unspecified intellectual disabilities; Z68.34 Body mass index [BMI] 34.0-34.9, adult; G40.909 Epilepsy, unspecified, not intractable, without status epilepticus; K21.9 Gastro-esophageal reflux disease without esophagitis; J45.909 Unspecified asthma, uncomplicated; I50.9 Heart failure, unspecified; E66.9 Obesity, unspecified; E78.00 Pure hypercholesterolemia, unspecified; E55.9 Vitamin D deficiency, unspecified; E88.09 Other disorders of plasma-protein metabolism, not elsewhere classified; Z90.49 Acquired absence of other specified parts of digestive tract; Z98.49 Cataract extraction status, unspecified eye; Z98.890 Other specified postprocedural states; Z79.899 Other long term (current) drug therapy
CPT/HCPCS: 0241U; 36415; 71045; 74018; 80053; 81003; 82306; 82947; 83605; 83735; 83880; 84439; 84443; 84484; 85025; 86140; 87040; 92610-GN; 93005; 93010; 93306; 94010; 94060; 94640; 94667; 94668; 96374; 97161-GP; 97165-GO; 99222; 99284; 99285-25; A9270-GY; C1758; C9113; J0295; J0456; J0696; J1815-GY; J1940; J3490; J7030; J7050; J7620-GY

== ENCOUNTER 2024-04-23 06:21 | Inpatient (IN) | payer MEDICARE, MEDICAID ==
[2024-04-23 06:40] LABS: EOSINOPHILS PERCENT AUTO 0.1 % (1.0-3.0); HEMATOCRIT 39.4 % (37.0-47.0); HEMOGLOBIN 12.6 g/dL (12.0-16.0); MEAN CORPUSCULAR HEMOGLOBIN 27.2 pg (27.0-34.0); MEAN CORPUSCULAR VOLUME 84.9 fL (80-100); MONOCYTES PERCENT AUTO 3.7 % (2-8); NEUTROPHILS PERCENT AUTO 90.2 % (42.2-75.2); PLATELET COUNT,PLT 231 10^3/uL (150-450); RED BLOOD CELL COUNT 4.64 10^6/uL (4.2-5.4); WHITE BLOOD CELL COUNT,WBC 7.9 10^3/uL (5.0-10.0)
[2024-04-23] MEDS: Acetaminophen 650 MG Supp RECTAL STA (06:46)
[2024-04-23 07:04] LABS: ALANINE AMINOTRANSFERASE,ALT 22 U/L (14-59); ALBUMIN 3.3 g/dL (3.4-5.0); ALKALINE PHOSPHATASE 79 U/L (46-116); ANION GAP 13.2 mEq/L (7-13); ASPARTATE AMNIOTRANSFERASE,AST 14 U/L (15-37); BILIRUBIN TOTAL 0.2 mg/dL (0.2-1.0); BLOOD UREA NITROGEN,BUN 16 mg/dL (7-18); C-REACTIVE PROTEIN 1.06 ng/dL (<=0.50); CALCIUM 9.3 mg/dL (8.5-10.1); CARBON DIOXIDE,CO2 29 mmol/L (21-32); CHLORIDE,CL 101 mmol/L (98-107); EST CRCL DRUG DOSING (CG) 40.81 mL/min; GLUCOSE RANDOM 236 mg/dL (70-99); MAGNESIUM 1.7 mg/dL (1.8-2.4); POTASSIUM,K 4.2 mmol/L (3.5-5.1); PROTEIN TOTAL,TP 8.1 g/dL (6.4-8.2); SODIUM,NA 139 mmol/L (136-145)
[2024-04-23 07:07] LABS: B-TYPE NATRIURETIC PEPTIDE,BNP 29 pg/ml (0-100)
[2024-04-23 07:10] LABS: A/G RATIO 0.69; ESTIMATED GFR 60 mL/min (>=60)
[2024-04-23 07:19] LABS: APPEARANCE,URINE CLEAR (CLEAR); BILIRUBIN,URINE NEGATIVE (NEGATIVE); COLOR,URINE YELLOW (YELLOW); GLUCOSE,URINE 100 (NEGATIVE); KETONES,URINE NEGATIVE (NEGATIVE); LEUKOCYTE ESTERASE,URINE NEGATIVE (NEGATIVE); NITRITE,URINE NEGATIVE (NEGATIVE); OCCULT BLOOD,URINE NEGATIVE (NEGATIVE); PH,URINE 7.5 (5.0-9.0); PROTEIN,URINE NEGATIVE (NEGATIVE); UROBILINOGEN,URINE 0.2 mg/dL (0.2-1.0)
[2024-04-23 07:21] LABS: PROTHROMBIN TIME 10.3 SEC (9.0-12.0)
[2024-04-23] MEDS: Iopamidol 612 MG/ML 100 ML Bottle IVPUSH ONE (07:54)
[2024-04-23] MEDS: Albuterol/Ipratropium 3.0-0.5 MG/3 ML Neb Soln NEB ONE (09:01)
[2024-04-23] MEDS: cefTRIAXone 1 GM Vial IVPUSH ONE (09:06)
[2024-04-23] MEDS: Azithromycin 500 MG in Sodium Chloride 0.9% 250 ML IV ONE (09:17)
[2024-04-23] MEDS: Sodium Chloride 0.9% 500 ML IV ONE (12:07)
[2024-04-23] MEDS ORDERED: Sennosides/Docusate Sodium 50-8.6 MG Tab PO PRN (13:07)
[2024-04-23] MEDS ORDERED: Albuterol/Ipratropium 3.0-0.5 MG/3 ML Neb Soln NEB PRN (13:07)
[2024-04-23] MEDS ORDERED: Ondansetron 4 MG/2 ML SDV IVPUSH PRN (13:07)
[2024-04-23] MEDS ORDERED: Magnesium Hydroxide 400 MG/5 ML Susp 30 ML Cup PO PRN ×2 (13:07→15:39)
[2024-04-23] MEDS ORDERED: HYDROmorphone 0.5 MG/0.5 ML Syringe IVPUSH PRN (13:07)
[2024-04-23] MEDS ORDERED: Acetaminophen 325 MG Tab PO PRN (13:07)
[2024-04-23] MEDS ORDERED: Naloxone 2 MG/2 ML Syringe IVPUSH PRN (13:07)
[2024-04-23] MEDS ORDERED: Polyethylene Glycol 3350 Powder 17 GM Packet PO PRN (13:07)
[2024-04-23] MEDS ORDERED: Acetaminophen 650 MG Supp RECTAL PRN (13:07)
[2024-04-23] MEDS ORDERED: Metoclopramide 10 MG/2 ML SDV IV PRN (13:07)
[2024-04-23] MEDS ORDERED: traMADol 50 MG Tab PO PRN (13:10)
[2024-04-23] MEDS ORDERED: Glucagon,Human Recombinant 1 MG Vial IM PRN (13:11)
[2024-04-23] MEDS ORDERED: 50% Dextrose in Water 50 ML Syringe IVPUSH PRN (13:11)
[2024-04-23] MEDS ORDERED: Benzonatate 100 MG Cap PO PRN (13:11)
[2024-04-23] MEDS: Lactated Ringers 500 ML IV ONE (13:21)
[2024-04-23] MEDS: Insulin Lispro 100 Units/ML 3 ML Vial SUBCUT SCH (14:25)
[2024-04-23] MEDS: Lactated Ringers 1,000 ML IV SCH (14:56)
[2024-04-23] MEDS ORDERED: Acetaminophen 500 MG Tab PO PRN (15:37)
[2024-04-23] MEDS ORDERED: Oxymetazoline 0.05% Nasal Spray 30 ML Bottle NASBOTH PRN (15:39)
[2024-04-23] MEDS ORDERED: Non-Formulary Medication 1 Each (Alendronate Sodium [Alendronate Sodium] 70 MG Tablet) PO SCH (15:45)
[2024-04-23] MEDS: Omeprazole 20 MG Cap.CR PO SCH (17:08)
[2024-04-23] MEDS: Ampicillin/Sulbactam Na 1.5 GM in Sodium Chloride 0.9% 100 ML IV SCH (17:56)
[2024-04-23] MEDS: Insulin Glarg,Human.Rec.Analog 100 Unit/ML 10 ML Vial SUBCUT SCH (19:54)
[2024-04-23] MEDS: Primidone 50 MG Tab PO SCH (19:55)
[2024-04-23] MEDS: Docusate Sodium 100 MG Cap PO SCH (19:56)
[2024-04-23] MEDS: guaiFENesin 600 MG Tab.ER PO SCH (19:56)
[2024-04-23] MEDS: Calcium Carbonate/Vitamin D3 1250 MG-5 MCG Tab PO SCH (19:56)
[2024-04-23] MEDS: Saccharomyces Boulardii (Probiotic) 250 MG Cap PO SCH (19:56)
[2024-04-23] MEDS: Simvastatin 10 MG Tab PO SCH (19:56)
[2024-04-23] MEDS: Montelukast 10 MG Tab PO SCH (19:56)
[2024-04-24 06:59] LABS: EOSINOPHILS PERCENT AUTO 1.9 % (1.0-3.0); HEMOGLOBIN 10.2 g/dL (12.0-16.0); LYMPHOCYTES PERCENT AUTO 24.4 % (20.5-50.1); MEAN CORPUSCULAR HEMOGLOBIN 26.7 pg (27.0-34.0); MEAN CORPUSCULAR HGB CONC 30.9 g/dL (33.0-35.0); MEAN CORPUSCULAR VOLUME 86.4 fL (80-100); MONOCYTES PERCENT AUTO 8.2 % (2-8); NEUTROPHILS PERCENT AUTO 65.5 % (42.2-75.2); PLATELET COUNT,PLT 194 10^3/uL (150-450); RED BLOOD CELL COUNT 3.82 10^6/uL (4.2-5.4); WHITE BLOOD CELL COUNT,WBC 6.4 10^3/uL (5.0-10.0)
[2024-04-24 07:25] LABS: ALBUMIN 2.5 g/dL (3.4-5.0); ANION GAP 13.4 mEq/L (7-13); BILIRUBIN TOTAL 0.3 mg/dL (0.2-1.0); BUN/CREATININE RATIO 22.4 (No establ ref range); C-REACTIVE PROTEIN 9.4 ng/dL (<=0.50); CALCIUM 8.2 mg/dL (8.5-10.1); CREATININE 0.76 mg/dL (0.55-1.02); EST CRCL DRUG DOSING (CG) 56.16 mL/min; MAGNESIUM 1.9 mg/dL (1.8-2.4); POTASSIUM,K 4.4 mmol/L (3.5-5.1); PROTEIN TOTAL,TP 6.5 g/dL (6.4-8.2)
[2024-04-24 07:39] LABS: A/G RATIO 0.63
[2024-04-24] MEDS: Primidone 50 MG Tab PO SCH (08:35)
[2024-04-24] MEDS: Multivitamin Tab PO SCH (08:35)
[2024-04-24] MEDS: Azithromycin 500 MG in Sodium Chloride 0.9% 250 ML IV SCH (08:40)
[2024-04-24] MEDS: Betamethasone Dipropionate 0.05% Crm 15 GM Tube TOP SCH (20:02)
[2024-04-25] MEDS: Melatonin 3 MG Tab PO PRN (00:46)
[2024-04-25 06:39] LABS: BASOPHILS PERCENT AUTO 0.2 % (0.0-1.0); HEMATOCRIT 33.5 % (37.0-47.0); HEMOGLOBIN 10.5 g/dL (12.0-16.0); LYMPHOCYTES PERCENT AUTO 21.4 % (20.5-50.1); MEAN CORPUSCULAR HEMOGLOBIN 26.9 pg (27.0-34.0); MEAN CORPUSCULAR HGB CONC 31.3 g/dL (33.0-35.0); MEAN CORPUSCULAR VOLUME 85.7 fL (80-100); MONOCYTES PERCENT AUTO 8.4 % (2-8); PLATELET COUNT,PLT 199 10^3/uL (150-450); RED BLOOD CELL COUNT 3.91 10^6/uL (4.2-5.4)
[2024-04-25 07:01] LABS: ALBUMIN 2.5 g/dL (3.4-5.0); ANION GAP 12.9 mEq/L (7-13); BILIRUBIN TOTAL 0.2 mg/dL (0.2-1.0); BUN/CREATININE RATIO 20.3 (No establ ref range); C-REACTIVE PROTEIN 5.03 ng/dL (<=0.50); CREATININE 0.69 mg/dL (0.55-1.02); EST CRCL DRUG DOSING (CG) 61.86 mL/min; MAGNESIUM 1.7 mg/dL (1.8-2.4); POTASSIUM,K 3.9 mmol/L (3.5-5.1); PROTEIN TOTAL,TP 6.5 g/dL (6.4-8.2)
[2024-04-25 07:07] LABS: A/G RATIO 0.63
[2024-04-25] MEDS: Cholecalciferol (Vitamin D3) 25 MCG Tab PO SCH (08:44)
[2024-04-25] MEDS: Magnesium Sulfate/Water Premix 2 GM in Premix Bag 1 BAG IV ONE (08:45)
[2024-04-25] MEDS: Lisinopril 10 MG Tab PO SCH (08:49)
[2024-04-25] MEDS: Furosemide 20 MG Tab PO SCH (08:49)
[2024-04-25] MEDS ORDERED: hydrALAZINE 20 MG/ML SDV IVPUSH PRN (12:31)
[2024-04-25] MEDS: Sodium Chloride 0.9% 10 ML Syringe FLUSH PRN (12:37)
[2024-04-25] MEDS: amLODIPine 5 MG Tab PO SCH (20:27)
[2024-04-25] MEDS: Insulin Glarg,Human.Rec.Analog 100 Unit/ML 10 ML Vial SUBCUT SCH (20:27)
[2024-04-26 06:36] LABS: BASOPHILS PERCENT AUTO 0.2 % (0.0-1.0); EOSINOPHILS PERCENT AUTO 3.3 % (1.0-3.0); HEMATOCRIT 35.3 % (37.0-47.0); HEMOGLOBIN 11.2 g/dL (12.0-16.0); LYMPHOCYTES PERCENT AUTO 21.5 % (20.5-50.1); MEAN CORPUSCULAR HEMOGLOBIN 27.1 pg (27.0-34.0); MEAN CORPUSCULAR HGB CONC 31.7 g/dL (33.0-35.0); MEAN CORPUSCULAR VOLUME 85.3 fL (80-100); MONOCYTES PERCENT AUTO 7.6 % (2-8); NEUTROPHILS PERCENT AUTO 67.4 % (42.2-75.2); PLATELET COUNT,PLT 232 10^3/uL (150-450); RED BLOOD CELL COUNT 4.14 10^6/uL (4.2-5.4); WHITE BLOOD CELL COUNT,WBC 6.4 10^3/uL (5.0-10.0)
[2024-04-26 07:05] LABS: ALBUMIN 2.5 g/dL (3.4-5.0); BILIRUBIN TOTAL 0.1 mg/dL (0.2-1.0); BUN/CREATININE RATIO 16.7 (No establ ref range); C-REACTIVE PROTEIN 2.77 ng/dL (<=0.50); CALCIUM 8.2 mg/dL (8.5-10.1); CREATININE 0.72 mg/dL (0.55-1.02); EST CRCL DRUG DOSING (CG) 59.28 mL/min; MAGNESIUM 2.1 mg/dL (1.8-2.4); PROTEIN TOTAL,TP 6.6 g/dL (6.4-8.2)
[2024-04-26 07:10] LABS: A/G RATIO 0.61
[2024-04-27 06:27] LABS: EOSINOPHILS PERCENT AUTO 3.3 % (1.0-3.0); HEMATOCRIT 36.3 % (37.0-47.0); HEMOGLOBIN 11.3 g/dL (12.0-16.0); LYMPHOCYTES PERCENT AUTO 25.4 % (20.5-50.1); MEAN CORPUSCULAR HEMOGLOBIN 26.7 pg (27.0-34.0); MEAN CORPUSCULAR HGB CONC 31.1 g/dL (33.0-35.0); MEAN CORPUSCULAR VOLUME 85.6 fL (80-100); MONOCYTES PERCENT AUTO 8.2 % (2-8); NEUTROPHILS PERCENT AUTO 63.1 % (42.2-75.2); PLATELET COUNT,PLT 240 10^3/uL (150-450); RED BLOOD CELL COUNT 4.24 10^6/uL (4.2-5.4); WHITE BLOOD CELL COUNT,WBC 5.5 10^3/uL (5.0-10.0)
[2024-04-27 06:48] LABS: ALBUMIN 2.6 g/dL (3.4-5.0); ANION GAP 13.9 mEq/L (7-13); BILIRUBIN TOTAL 0.2 mg/dL (0.2-1.0); BUN/CREATININE RATIO 21.9 (No establ ref range); C-REACTIVE PROTEIN 2.18 ng/dL (<=0.50); CALCIUM 8.4 mg/dL (8.5-10.1); CREATININE 0.73 mg/dL (0.55-1.02); EST CRCL DRUG DOSING (CG) 58.47 mL/min; MAGNESIUM 2.1 mg/dL (1.8-2.4); POTASSIUM,K 3.9 mmol/L (3.5-5.1); PROTEIN TOTAL,TP 6.9 g/dL (6.4-8.2)
[2024-04-27 06:51] LABS: A/G RATIO 0.6
== END 2024-04-27 10:50 | disposition home or self-care (01) | DRG 871 ==
LOC: DL.ED 06:21 → DL.MS 12:03
PROVIDERS: ADMIT Internal Medicine; ATTEND Internal Medicine
DX: A41.9 Sepsis, unspecified organism (principal); R09.02 Hypoxemia; G93.41 Metabolic encephalopathy; K21.9 Gastro-esophageal reflux disease without esophagitis; J18.9 Pneumonia, unspecified organism; J69.0 Pneumonitis due to inhalation of food and vomit; E10.9 Type 1 diabetes mellitus without complications; J96.01 Acute respiratory failure with hypoxia; I50.32 Chronic diastolic (congestive) heart failure; J45.909 Unspecified asthma, uncomplicated; Z68.33 Body mass index [BMI] 33.0-33.9, adult; G40.909 Epilepsy, unspecified, not intractable, without status epilepticus; E78.00 Pure hypercholesterolemia, unspecified; I11.0 Hypertensive heart disease with heart failure; E66.9 Obesity, unspecified; K44.9 Diaphragmatic hernia without obstruction or gangrene; E11.65 Type 2 diabetes mellitus with hyperglycemia; E83.42 Hypomagnesemia; F79 Unspecified intellectual disabilities; D50.9 Iron deficiency anemia, unspecified; Z79.1 Long term (current) use of non-steroidal anti-inflammatories (NSAID); Z79.4 Long term (current) use of insulin; Z79.899 Other long term (current) drug therapy; Z79.02 Long term (current) use of antithrombotics/antiplatelets; Z68.31 Body mass index [BMI] 31.0-31.9, adult; Z98.49 Cataract extraction status, unspecified eye; Z90.49 Acquired absence of other specified parts of digestive tract; Z98.890 Other specified postprocedural states
CPT/HCPCS: 36415; 70450; 71045; 74177; 80053; 81003; 83605; 83735; 83880; 84145; 84484; 85025; 85610; 86140; 87040 ×2; 87428; 93005; 93010; 96365; 96367; 96375; 99285 ×2; A9270; J0456; J0696; J3475; J7050; Q9967; 82947; 94010; 94667; 97161-GP; 97165-GO; 99223; 99232; 99238; J0295; J1815-GY; J3490; J7030; J7120; J7620-GY

== ENCOUNTER 2025-03-16 19:45 | Emergency (ER) | payer MEDICARE, MEDICAID ==
[2025-03-16] MEDS ORDERED: Sodium Chloride 0.9% 10 ML Syringe FLUSH PRN (20:06)
[2025-03-16 20:57] LABS: BASOPHILS PERCENT AUTO 0.0 % (0.0-1.0); EOSINOPHILS PERCENT AUTO 0.6 % (1.0-3.0); LYMPHOCYTES PERCENT AUTO 11.2 % (20.5-50.1); MONOCYTES PERCENT AUTO 4.1 % (2-8); NEUTROPHILS PERCENT AUTO 84.1 % (42.2-75.2); PLATELET COUNT,PLT 224 10^3/uL (150-450); RED BLOOD CELL COUNT 4.20 10^6/uL (4.2-5.4); WHITE BLOOD CELL COUNT,WBC 8.5 10^3/uL (5.0-10.0)
[2025-03-16 21:18] LABS: ALANINE AMINOTRANSFERASE,ALT 28 U/L (14-59); ASPARTATE AMNIOTRANSFERASE,AST 15 U/L (15-37); BILIRUBIN TOTAL 0.2 mg/dL (0.2-1.0); BLOOD UREA NITROGEN,BUN 24 mg/dL (7-18); CARBON DIOXIDE,CO2 29 mmol/L (21-32); CHLORIDE,CL 102 mmol/L (98-107); CREATININE 0.80 mg/dL (0.55-1.02); GLUCOSE RANDOM 153 mg/dL (70-99); POTASSIUM,K 4.1 mmol/L (3.5-5.1); PROTEIN TOTAL,TP 7.0 g/dL (6.4-8.2); SODIUM,NA 140 mmol/L (136-145)
[2025-03-16 21:19] LABS: A/G RATIO 0.75; ESTIMATED GFR 78 mL/min (>=60)
[2025-03-16 21:29] LABS: INR 1.0 (0.9-1.2); PTT,PARTIAL THROMBOPLSTIN TIME 22.8 SEC (22.0-34.0)
[2025-03-16 21:55] LABS: APPEARANCE,URINE SLIGHTLY CLOUDY (CLEAR); GLUCOSE,URINE NEGATIVE (NEGATIVE); OCCULT BLOOD,URINE LARGE (NEGATIVE)
[2025-03-16 22:07] LABS: EPITHELIAL CELLS,URINE FEW /HPF (NOT SEEN)
== END 2025-03-16 22:07 ==
LOC: DL.ED 19:45
DX: J06.9 Acute upper respiratory infection, unspecified (principal); B97.89 Other viral agents as the cause of diseases classified elsewhere; I50.9 Heart failure, unspecified; E78.00 Pure hypercholesterolemia, unspecified; K21.9 Gastro-esophageal reflux disease without esophagitis; E10.9 Type 1 diabetes mellitus without complications; E66.9 Obesity, unspecified; Z79.899 Other long term (current) drug therapy; Z90.49 Acquired absence of other specified parts of digestive tract
CPT/HCPCS: 71045; 80053; 81001; 83735; 84484; 85025; 85610; 85730; 87086; 87428-QW; 93005; 93010; 99283; 99284